=== PATIENT | female | born 1975 | race Caucasian/White ===

== ENCOUNTER 2018-02-26 09:57 | Day surgery (SDC) | payer OTHER ==
[2018-02-20 11:12] VITALS: BMI 23.9
[2018-02-26] MEDS ORDERED: PROPOFOL 20 ML ONE (12:44)
[2018-02-26 13:14] VITALS: TEMP 98.2
[2018-02-26 14:18] VITALS: BP 110/62; PULSE 66
--- NOTE | 2018-03-02 19:24 | PATH ---
Surgical Pathology Report Patient Name: [facility]. Rec. #: [id number] /Age/Gender: 1975 (Age: 42) / F Account: [id number] Location: [facility]-ENDOSCOPY Taken: 02/26/2018 Received: 02/26/2018 Reported: 03/02/2018 Physicians: Karen Humphreys M.D. Specimen(s) Received A: BX DUODENUM SECOND PORTION B: BX ANTRUM C: BX GE JUNCTION Clinical History Dyspepsia Postoperative diagnosis: Gastric ulcer Final Diagnosis A. SECOND PORTION OF DUODENUM, BIOPSY: MILD CHRONIC DUODENITIS WITH IGOR'S GLAND HYPERPLASIA. B. ANTRUM, BIOPSY: MILD CHRONIC GASTRITIS. IMMUNOSTAINS NEGATIVE FOR H. PYLORI ORGANISMS. C. GE JUNCTION, BIOPSY: ESOPHAGOGASTRIC JUNCTIONAL (SQUAMOCOLUMNAR) MUCOSA SHOWING MODERATE ACUTE AND CHRONIC INFLAMMATION IN A BACKGROUND OF REFLUX-ASSOCIATED CHANGES. NEGATIVE FOR INTESTINAL METAPLASIA. Electronically Signed Angelic Duong M.D. Gross Description A. Received in formalin, labeled "biopsy second portion of duodenum" is a arteaga, irregular portion of soft tissue measuring 0.3 cm. in greatest dimension. The specimen is submitted in toto in one cassette. B. Received in formalin, labeled "biopsy antrum" are 2 arteaga, irregular portions of soft tissue measuring 0.2 and 0.3 cm. in greatest dimension. The specimens are submitted in toto in one cassette. C. Received in formalin, labeled "biopsy GE junction" is a arteaga, irregular portion of soft tissue measuring 0.4 cm. in greatest dimension. The specimen is submitted in toto in one cassette. 02/27/2018 [facility]02/27/2018
== END 2018-02-26 13:45 | disposition home or self-care (01) ==
LOC: FASU-ENDO 09:57
PROVIDERS: ATTEND Internal Medicine Gastroenterology
PROC: 0DB68ZX Excision of Stomach, Via Natural or Artificial Opening Endoscopic, Diagnostic (ICD-10-PCS; 2018-02-26)
PROC: 0DB38ZX Excision of Lower Esophagus, Via Natural or Artificial Opening Endoscopic, Diagnostic (ICD-10-PCS; 2018-02-26)
PROC: 0DB98ZX Excision of Duodenum, Via Natural or Artificial Opening Endoscopic, Diagnostic (ICD-10-PCS; principal; 2018-02-26 12:45)
DX: K25.9 Gastric ulcer, unspecified as acute or chronic, without hemorrhage or perforation (principal); R10.9 Unspecified abdominal pain; K31.89 Other diseases of stomach and duodenum; K29.80 Duodenitis without bleeding; K29.50 Unspecified chronic gastritis without bleeding; K20.9 Esophagitis, unspecified
CPT/HCPCS: 84703; 88305-TC; 88342-TC